=== PATIENT | male | born 1990 | race Caucasian/White ===

== ENCOUNTER 2022-09-12 15:22 | Emergency (ER) | payer OTHER ==
[2022-09-12 15:30] VITALS: BP 133/88
--- NOTE | 2022-09-12 15:37 | ED Physician Documentation ---
History of Present Illness - Stated complaint Stated Complaint: FIT - Chief complaint Chief Complaint: General - History obtained from History obtained from: Patient, Police - History of Present Illness Timing: Today Pain level max: 0 Pain level now: 0 - Additonal information Additional information: 32-year-old male was brought in by police for a "fit for confinement". The police have no complaints or concerns. The patient also has no complaints. States he does not have any medical problems. Denies any trauma. States he feels normal. Does not take any medications at home. Denies any pain. Review of Systems Constitutional: denies: Fever Cardiac: denies: Chest pain / pressure Respiratory: denies: Cough GI: denies: Vomiting Musculoskeletal: denies: Neck pain, Back pain Neurologic: denies: Headache, Head injury PD PAST MEDICAL HISTORY - Past Medical History Past Medical History: No - Past Surgical History Past Surgical History: No - Living Situation Living Arrangement: reports: At home - Family History Family history: reports: Non contributory PD ED PE NORMAL - Vitals Vital signs reviewed: Yes - General General: Alert and oriented X 3, No acute distress - HEENT HEENT: Atraumatic, PERRL, Moist mucous membranes - Neck Neck: Supple, no meningeal sign - Cardiac Cardiac: RRR, Strong equal pulses - Respiratory Respiratory: No respiratory distress, Clear bilaterally - Abdomen Abdomen: Soft, Non tender, Non distended - Back Back: No spinal TTP - Derm Derm: Warm and dry - Extremities Extremities: Normal ROM s pain - Neuro Neuro: Alert and oriented X 3 Eye Opening: Spontaneous Motor: Obeys Commands Verbal: Oriented GCS Score: 15 - Psych Psych: Normal mood, Normal affect Results - Vitals Vitals: Vital Signs - 24 hr 09/12/22 15:24 Temperature 37.4 C Heart Rate 98 Respiratory 16 Rate Blood Pressure 133/88 H O2 Saturation 99 Oxygen O2 Source Room air PD Medical Decision Making - ED course Complexity details: considered differential, d/w patient ED course: Patient with no medical complaints. No emergency medical condition at this time. Vital signs are stable. Police have no concerns either. This document was made in part using voice recognition software. While efforts are made to proofread this document, sound alike and grammatical errors may occur. Departure - Departure Disposition: 01 Home, Self Care Clinical Impression: Encounter for medical screening examination Condition: Good Instructions: ED Screening Exam Medical Nonurgent Follow-Up: your,doctor as needed [Other] Comments: Patient has no complaints. Can follow up with his doctor as needed Discharge Date/Time: 09/12/22 15:43
== END 2022-09-12 15:43 | disposition home or self-care (01) ==
LOC: ED 15:22
DX: Z02.89 Encounter for other administrative examinations (principal)
CPT/HCPCS: 99281; 99282